=== PATIENT | male | born 1955 | race Caucasian/White ===

== ENCOUNTER 2019-03-03 14:44 | Inpatient (IN) | payer OTHER ==
[~2019-03-03] VITALS: Ht 185.4 cm; Wt 90.0 kg
[2019-03-03] MEDS ORDERED: DEXTROSE 50%-WATER 25 GM/50 ML SYRINGE IVP PRN ×2 (18:30)
[2019-03-03] MEDS ORDERED: INSULIN LISPRO 100 UNITS/ML SQ PRN (18:30)
[2019-03-03] MEDS: INSULIN LISPRO 100 UNITS/ML SQ PRN ×2 (18:44→20:47)
[2019-03-03] MEDS ORDERED: OxyCODONE HCL/ACETAMINOPHEN 5-325 MG TABLET PO PRN (19:30)
[2019-03-03] MEDS ORDERED: BISACODYL 5 MG EC TABLET PO PRN (19:30)
[2019-03-03] MEDS ORDERED: MELATONIN 3 MG TABLET PO PRN (19:30)
[2019-03-03] MEDS ORDERED: OxyCODONE HCL/ACETAMINOPHEN 10-325 MG TABLET PO PRN (19:30)
[2019-03-03] MEDS ORDERED: LACTULOSE 20 GM/30 ML SOLUTION UDCUP PO PRN (19:30)
[2019-03-03] MEDS ORDERED: ACETAMINOPHEN 325 MG TABLET PO PRN (19:30)
[2019-03-03 19:34] LABS: GLUCOMETER DEV NAME(LOC) 2WR.2; GLUCOSE,POINT OF CARE 147 MG/DL (70-110)
[2019-03-03] MEDS: AmLODIPine BESYLATE 10 MG TABLET PO SCH (20:40)
[2019-03-03] MEDS: HEPARIN SODIUM,PORCINE 5,000 UNITS/ML VIAL SQ SCH (20:40)
[2019-03-03] MEDS: INSULIN GLARGINE,HUM.REC.ANLOG 100 UNITS/ML SQ SCH (20:46)
[2019-03-03] MEDS: DOCUSATE SODIUM 100 MG CAPSULE PO SCH (20:49)
[2019-03-03 20:50] VITALS: BP 132/56
[2019-03-03 22:35] LABS: GLUCOMETER DEV NAME(LOC) 2WR.1; GLUCOSE,POINT OF CARE 147 MG/DL (70-110)
[2019-03-04] VITALS: BP 144/60
[2019-03-04 06:36] LABS: GLUCOMETER DEV NAME(LOC) 2WR.2; GLUCOSE,POINT OF CARE 100 MG/DL (70-110)
[2019-03-04 07:13] LABS: BASOPHILS % (AUTO) 1.8 % (0.0-2.0); HEMATOCRIT 24.9 % (41-53); HEMOGLOBIN 7.9 g/dL (13.5-17.5); LYMPHOCYTES # (AUTO) 1.3 K/uL (1.0-4.8); LYMPHOCYTES % (AUTO) 22.6 % (22.0-44.0); MEAN CORPUSCULAR HEMOGLOBIN 26.4 pg (26.0-34.0); MEAN CORPUSCULAR HGB CONC 31.9 G/dL (31.0-37.0); MEAN CORPUSCULAR VOLUME 83 fL (80-100); MONOCYTES # (AUTO) 0.7 K/uL (0.1-1.0); MONOCYTES % (AUTO) 11.1 % (2.0-9.0); NEUTROPHILS # (AUTO) 3.6 K/uL (1.8-7.7); NEUTROPHILS % (AUTO) 60.5 % (40.0-70.0); PLATELET COUNT (AUTO) 333 K/uL (150-450); RED BLOOD CELL COUNT(AUTO) 3.01 MIL/uL (4.50-5.90); RED CELL DISTRIBUTION WIDTH 20.2 % (11.5-14.5)
[2019-03-04 08:00] LABS: ALBUMIN 2.1 g/dL (3.4-5.0); BILIRUBIN,TOTAL 0.4 mg/dL (0.1-1.0); CALCIUM, TOTAL 8.6 mg/dL (8.8-10.5); CREATININE 6.34 mg/dL (0.60-1.30); POTASSIUM 4.4 mmol/L (3.5-5.1); TOTAL PROTEIN, SERUM 6.2 g/dL (6.4-8.2)
[2019-03-04 08:01] VITALS: BP 146/68
[2019-03-04] MEDS: FERROUS SULFATE 325 MG EC TABLET PO SCH ×3 (08:05→17:27)
[2019-03-04] MEDS: LISINOPRIL 10 MG TABLET PO SCH (08:05)
[2019-03-04] MEDS: HEPARIN SODIUM,PORCINE 5,000 UNITS/ML VIAL SQ SCH ×2 (08:05→20:26)
[2019-03-04] MEDS: DOCUSATE SODIUM 100 MG CAPSULE PO SCH ×3 (08:05→20:26)
[2019-03-04] MEDS: FAMOTIDINE 20 MG TABLET PO SCH (08:05)
[2019-03-04] MEDS: EPOETIN ALFA 10,000 UNITS/ML VIAL SQ SCH (08:10)
[2019-03-04] MEDS: VITAMIN B COMP/VIT C/FOLIC ACID CAPSULE PO SCH (10:42)
[2019-03-04] MEDS: INSULIN LISPRO 100 UNITS/ML SQ PRN ×2 (12:31→20:35)
[2019-03-04 12:41] LABS: GLUCOMETER DEV NAME(LOC) 2WR.1; GLUCOSE,POINT OF CARE 142 MG/DL (70-110)
[2019-03-04 16:05] VITALS: BP 139/61
[2019-03-04 18:15] LABS: GLUCOMETER DEV NAME(LOC) 2WR.1; GLUCOSE,POINT OF CARE 93 MG/DL (70-110)
[2019-03-04 20:22] VITALS: BP 148/64
[2019-03-04] MEDS: AmLODIPine BESYLATE 10 MG TABLET PO SCH (20:26)
[2019-03-04] MEDS: INSULIN GLARGINE,HUM.REC.ANLOG 100 UNITS/ML SQ SCH (20:34)
[2019-03-04 21:30] LABS: GLUCOMETER DEV NAME(LOC) 2WR.1; GLUCOSE,POINT OF CARE 179 MG/DL (70-110)
[2019-03-04] MEDS: CHLORHEXIDINE GLUCONATE 4% 118 ML TOPICAL LIQUID TP SCH (22:28)
[2019-03-05] VITALS: BP 134/59
[2019-03-05 06:25] LABS: GLUCOMETER DEV NAME(LOC) 2WR.2; GLUCOSE,POINT OF CARE 85 MG/DL (70-110)
[2019-03-05 06:48] LABS: BASOPHILS % (AUTO) 1.3 % (0.0-2.0); EOSINOPHILS % (AUTO) 5.4 % (1.0-6.0); HEMATOCRIT 25.1 % (41-53); LYMPHOCYTES % (AUTO) 31.7 % (22.0-44.0); MEAN CORPUSCULAR HEMOGLOBIN 26.5 pg (26.0-34.0); MEAN CORPUSCULAR VOLUME 83 fL (80-100); MONOCYTES # (AUTO) 0.6 K/uL (0.1-1.0); NEUTROPHILS # (AUTO) 3.3 K/uL (1.8-7.7); NEUTROPHILS % (AUTO) 51.6 % (40.0-70.0); PLATELET COUNT (AUTO) 347 K/uL (150-450); RED BLOOD CELL COUNT(AUTO) 3.02 MIL/uL (4.50-5.90); RED CELL DISTRIBUTION WIDTH 20.2 % (11.5-14.5)
[2019-03-05 07:25] LABS: % IRON SATURATION 25.1 % (30-44)
[2019-03-05 07:29] LABS: CREATININE 8.35 mg/dL (0.60-1.30)
[2019-03-05] MEDS ORDERED: SODIUM CHLORIDE 0.9% 1,000 ML IV ONE ×2 (07:29)
[2019-03-05 07:37] LABS: CALCIUM, TOTAL 8.9 mg/dL (8.8-10.5)
[2019-03-05] MEDS: FAMOTIDINE 20 MG TABLET PO SCH (08:12)
[2019-03-05] MEDS: VITAMIN B COMP/VIT C/FOLIC ACID CAPSULE PO SCH (08:12)
[2019-03-05] MEDS: LISINOPRIL 10 MG TABLET PO SCH (08:13)
[2019-03-05] MEDS: HEPARIN SODIUM,PORCINE 5,000 UNITS/ML VIAL SQ SCH ×2 (08:13→21:08)
[2019-03-05] MEDS: FERROUS SULFATE 325 MG EC TABLET PO SCH ×3 (08:13→17:46)
[2019-03-05] MEDS: DOCUSATE SODIUM 100 MG CAPSULE PO SCH ×2 (08:14→21:08)
[2019-03-05 08:47] VITALS: BP 136/58
[2019-03-05] MEDS ORDERED: MANNITOL 25%-12.5 GM/50 ML VIAL IVP PRN (10:45)
[2019-03-05] MEDS ORDERED: HEPARIN SODIUM,PORCINE 1,000 UNITS/ML VIAL IVP ONE ×2 (10:45)
[2019-03-05] MEDS ORDERED: SOD FERRIC GLUC COMPLX/SUCROSE 125 MG in SODIUM CHLORIDE 0.9% 100 ML IV SCH (11:00)
[2019-03-05 16:43] VITALS: BP 130/60
[2019-03-05] MEDS ORDERED: SODIUM CHLORIDE 0.9% 250 ML IV ONE (17:26)
[2019-03-05] MEDS ORDERED: HEPARIN SODIUM,PORCINE 1,000 UNITS/ML VIAL ONE (18:05)
[2019-03-05 18:06] LABS: GLUCOMETER DEV NAME(LOC) 2WR.1; GLUCOSE,POINT OF CARE 156 MG/DL (70-110)
[2019-03-05] MEDS: INSULIN LISPRO 100 UNITS/ML SQ PRN (18:51)
[2019-03-05 20:00] VITALS: BP 116/51
[2019-03-05] MEDS: AmLODIPine BESYLATE 10 MG TABLET PO SCH (21:08)
[2019-03-05] MEDS: CHLORHEXIDINE GLUCONATE 4% 118 ML TOPICAL LIQUID TP SCH (21:08)
[2019-03-05] MEDS: INSULIN GLARGINE,HUM.REC.ANLOG 100 UNITS/ML SQ SCH (21:09)
[2019-03-05 21:56] LABS: GLUCOMETER DEV NAME(LOC) 2WR.2; GLUCOSE,POINT OF CARE 138 MG/DL (70-110)
[2019-03-05] MEDS: 0.9% SODIUM CHLORIDE 10 ML SYRINGE IVP SCH (23:18)
[2019-03-06 00:25] VITALS: BP 142/62
[2019-03-06 06:21] LABS: GLUCOMETER DEV NAME(LOC) 2WR.1; GLUCOSE,POINT OF CARE 90 MG/DL (70-110)
[2019-03-06] MEDS: FERROUS SULFATE 325 MG EC TABLET PO SCH ×3 (08:32→18:22)
[2019-03-06] MEDS: LISINOPRIL 10 MG TABLET PO SCH (08:33)
[2019-03-06] MEDS: FAMOTIDINE 20 MG TABLET PO SCH (08:33)
[2019-03-06] MEDS: CALCITRIOL 0.25 MCG CAPSULE PO SCH (08:33)
[2019-03-06] MEDS: DOCUSATE SODIUM 100 MG CAPSULE PO SCH ×2 (08:34→20:37)
[2019-03-06] MEDS: VITAMIN B COMP/VIT C/FOLIC ACID CAPSULE PO SCH (08:34)
[2019-03-06] MEDS: 0.9% SODIUM CHLORIDE 10 ML SYRINGE IVP SCH (08:35)
[2019-03-06] MEDS: HEPARIN SODIUM,PORCINE 5,000 UNITS/ML VIAL SQ SCH ×2 (08:36→20:38)
[2019-03-06 09:08] VITALS: BP 150/67
[2019-03-06 12:51] LABS: GLUCOMETER DEV NAME(LOC) 2WR.2; GLUCOSE,POINT OF CARE 131 MG/DL (70-110)
[2019-03-06] MEDS ORDERED: SOD FERRIC GLUC COMPLX/SUCROSE 125 MG in SODIUM CHLORIDE 0.9% 100 ML IV SCH (16:00)
[2019-03-06 16:17] VITALS: BP 142/66
[2019-03-06 19:40] LABS: GLUCOMETER DEV NAME(LOC) 2WR.1; GLUCOSE,POINT OF CARE 99 MG/DL (70-110)
[2019-03-06 20:37] VITALS: BP 146/65
[2019-03-06] MEDS: AmLODIPine BESYLATE 10 MG TABLET PO SCH (20:37)
[2019-03-06] MEDS: CHLORHEXIDINE GLUCONATE 4% 118 ML TOPICAL LIQUID TP SCH (20:38)
[2019-03-06 20:40] LABS: GLUCOMETER DEV NAME(LOC) 2WR.1; GLUCOSE,POINT OF CARE 183 MG/DL (70-110)
[2019-03-06] MEDS: INSULIN GLARGINE,HUM.REC.ANLOG 100 UNITS/ML SQ SCH (20:41)
[2019-03-06] MEDS: INSULIN LISPRO 100 UNITS/ML SQ PRN (20:42)
[2019-03-07] VITALS: BP 141/50
[2019-03-07 05:57] LABS: GLUCOMETER DEV NAME(LOC) 2WR.1; GLUCOSE,POINT OF CARE 113 MG/DL (70-110)
[2019-03-07] MEDS: HEPARIN SODIUM,PORCINE 5,000 UNITS/ML VIAL SQ SCH ×2 (07:55→21:15)
[2019-03-07] MEDS: EPOETIN ALFA 10,000 UNITS/ML VIAL SQ SCH (07:55)
[2019-03-07] MEDS: FERROUS SULFATE 325 MG EC TABLET PO SCH ×3 (07:55→21:10)
[2019-03-07] MEDS: DOCUSATE SODIUM 250 MG CAPSULE PO SCH ×2 (07:55→21:11)
[2019-03-07] MEDS: FAMOTIDINE 20 MG TABLET PO SCH (07:55)
[2019-03-07] MEDS: VITAMIN B COMP/VIT C/FOLIC ACID CAPSULE PO SCH (07:55)
[2019-03-07] MEDS: LISINOPRIL 10 MG TABLET PO SCH (08:22)
[2019-03-07 11:16] VITALS: BP 145/64
[2019-03-07] MEDS ORDERED: HEPARIN SODIUM,PORCINE 1,000 UNITS/ML VIAL IVP ONE (12:00)
[2019-03-07] MEDS ORDERED: SODIUM CHLORIDE 0.9% 2,000 ML IV ONE (12:32)
[2019-03-07 12:56] LABS: GLUCOMETER DEV NAME(LOC) 2WR.1; GLUCOSE,POINT OF CARE 124 MG/DL (70-110)
[2019-03-07] MEDS ORDERED: SOD FERRIC GLUC COMPLX/SUCROSE 125 MG in SODIUM CHLORIDE 0.9% 100 ML IV SCH (13:00)
[2019-03-07 16:15] VITALS: BP 140/68
[2019-03-07 20:30] VITALS: BP 147/60
[2019-03-07] MEDS: AmLODIPine BESYLATE 10 MG TABLET PO SCH (21:10)
[2019-03-07] MEDS: CHLORHEXIDINE GLUCONATE 4% 118 ML TOPICAL LIQUID TP SCH (21:10)
[2019-03-07] MEDS: SENNA 187 MG TABLET PO SCH (21:11)
[2019-03-07] MEDS: SOD FERRIC GLUC COMPLX/SUCROSE 125 MG in SODIUM CHLORIDE 0.9% 100 ML IV SCH (21:16)
[2019-03-07] MEDS: INSULIN GLARGINE,HUM.REC.ANLOG 100 UNITS/ML SQ SCH (21:29)
[2019-03-07 21:55] LABS: GLUCOMETER DEV NAME(LOC) 2WR.1; GLUCOSE,POINT OF CARE 89 MG/DL (70-110)
[2019-03-08 00:07] VITALS: BP 128/62
[2019-03-08 06:11] LABS: GLUCOMETER DEV NAME(LOC) 2WR.1; GLUCOSE,POINT OF CARE 87 MG/DL (70-110)
[2019-03-08 07:30] VITALS: BP 148/64
[2019-03-08] MEDS: CALCITRIOL 0.25 MCG CAPSULE PO SCH (08:12)
[2019-03-08] MEDS: VITAMIN B COMP/VIT C/FOLIC ACID CAPSULE PO SCH (08:12)
[2019-03-08] MEDS: HEPARIN SODIUM,PORCINE 5,000 UNITS/ML VIAL SQ SCH ×2 (08:12→20:41)
[2019-03-08] MEDS: DOCUSATE SODIUM 250 MG CAPSULE PO SCH ×2 (08:12→20:40)
[2019-03-08] MEDS: LISINOPRIL 10 MG TABLET PO SCH (08:12)
[2019-03-08] MEDS: FAMOTIDINE 20 MG TABLET PO SCH (08:13)
[2019-03-08] MEDS: FERROUS SULFATE 325 MG EC TABLET PO SCH ×3 (08:13→18:09)
[2019-03-08 15:00] VITALS: BP 139/65
[2019-03-08] MEDS ORDERED: ONDANSETRON HCL 4 MG TABLET PO PRN (15:30)
[2019-03-08 18:26] LABS: GLUCOMETER DEV NAME(LOC) 2WR.2; GLUCOSE,POINT OF CARE 133 MG/DL (70-110)
[2019-03-08 20:38] VITALS: BP 132/68
[2019-03-08] MEDS: AmLODIPine BESYLATE 10 MG TABLET PO SCH (20:40)
[2019-03-08] MEDS: SENNA 187 MG TABLET PO SCH (20:40)
[2019-03-08] MEDS: CHLORHEXIDINE GLUCONATE 4% 118 ML TOPICAL LIQUID TP SCH (20:42)
[2019-03-08] MEDS: INSULIN GLARGINE,HUM.REC.ANLOG 100 UNITS/ML SQ SCH (20:43)
[2019-03-08] MEDS: INSULIN LISPRO 100 UNITS/ML SQ PRN (20:44)
[2019-03-08 22:15] LABS: GLUCOMETER DEV NAME(LOC) 2WR.2; GLUCOSE,POINT OF CARE 189 MG/DL (70-110)
[2019-03-09 00:16] VITALS: BP 132/63
[2019-03-09 06:26] LABS: GLUCOMETER DEV NAME(LOC) 2WR.1; GLUCOSE,POINT OF CARE 99 MG/DL (70-110)
[2019-03-09 07:30] VITALS: BP 141/54
[2019-03-09] MEDS: VITAMIN B COMP/VIT C/FOLIC ACID CAPSULE PO SCH (08:45)
[2019-03-09] MEDS: FERROUS SULFATE 325 MG EC TABLET PO SCH ×3 (08:46→17:36)
[2019-03-09] MEDS: HEPARIN SODIUM,PORCINE 5,000 UNITS/ML VIAL SQ SCH ×2 (08:46→20:41)
[2019-03-09] MEDS: FAMOTIDINE 20 MG TABLET PO SCH (08:46)
[2019-03-09] MEDS: EPOETIN ALFA 10,000 UNITS/ML VIAL SQ SCH (08:46)
[2019-03-09] MEDS: LISINOPRIL 10 MG TABLET PO SCH (08:46)
[2019-03-09] MEDS: DOCUSATE SODIUM 250 MG CAPSULE PO SCH ×2 (08:47→20:41)
[2019-03-09 13:00] LABS: GLUCOMETER DEV NAME(LOC) 2WR.2; GLUCOSE,POINT OF CARE 112 MG/DL (70-110)
[2019-03-09] MEDS: SOD FERRIC GLUC COMPLX/SUCROSE 125 MG in SODIUM CHLORIDE 0.9% 100 ML IV SCH (13:00)
[2019-03-09 18:00] LABS: GLUCOMETER DEV NAME(LOC) 2WR.2; GLUCOSE,POINT OF CARE 103 MG/DL (70-110)
[2019-03-09 20:06] VITALS: BP 148/71
[2019-03-09] MEDS: AmLODIPine BESYLATE 10 MG TABLET PO SCH (20:41)
[2019-03-09] MEDS: CHLORHEXIDINE GLUCONATE 4% 118 ML TOPICAL LIQUID TP SCH (20:41)
[2019-03-09] MEDS: SENNA 187 MG TABLET PO SCH (20:41)
[2019-03-09] MEDS: INSULIN GLARGINE,HUM.REC.ANLOG 100 UNITS/ML SQ SCH (20:52)
[2019-03-10] VITALS: BP 136/70
[2019-03-10] MEDS: DiphenhydrAMINE HCL 25 MG CAPSULE PO PRN ×2 (00:37→07:55)
[2019-03-10] MEDS ORDERED: CALC25 PO (05:03)
[2019-03-10] MEDS ORDERED: FAMO20 PO (05:03)
[2019-03-10] MEDS ORDERED: DOCU250C91 PO (05:03)
[2019-03-10] MEDS ORDERED: LISI-661 PO (05:03)
[2019-03-10] MEDS ORDERED: INSLAN SQ (05:03)
[2019-03-10] MEDS ORDERED: FERR-89 PO (05:03)
[2019-03-10] MEDS ORDERED: FOLI0.8T2 PO (05:13)
[2019-03-10 06:35] LABS: GLUCOMETER DEV NAME(LOC) 2WR.1; GLUCOSE,POINT OF CARE 97 MG/DL (70-110)
[2019-03-10 07:30] VITALS: BP 149/61
[2019-03-10] MEDS: HEPARIN SODIUM,PORCINE 5,000 UNITS/ML VIAL SQ SCH ×2 (07:55→20:15)
[2019-03-10] MEDS: CALCITRIOL 0.25 MCG CAPSULE PO SCH (07:55)
[2019-03-10] MEDS: FAMOTIDINE 20 MG TABLET PO SCH (07:55)
[2019-03-10] MEDS: FERROUS SULFATE 325 MG EC TABLET PO SCH ×3 (07:55→18:03)
[2019-03-10] MEDS: VITAMIN B COMP/VIT C/FOLIC ACID CAPSULE PO SCH (07:56)
[2019-03-10] MEDS: DOCUSATE SODIUM 250 MG CAPSULE PO SCH ×3 (07:56→20:34)
[2019-03-10] MEDS: SOD FERRIC GLUC COMPLX/SUCROSE 125 MG in SODIUM CHLORIDE 0.9% 100 ML IV SCH ×2 (07:59→13:45)
[2019-03-10] MEDS: LISINOPRIL 10 MG TABLET PO SCH (08:42)
[2019-03-10] MEDS ORDERED: SOD FERRIC GLUC COMPLX/SUCROSE 125 MG in SODIUM CHLORIDE 0.9% 100 ML IV ONE (09:00)
[2019-03-10 10:13] LABS: HEMOGLOBIN 8.2 g/dL (13.5-17.5); MEAN CORPUSCULAR HEMOGLOBIN 27.2 pg (26.0-34.0); MEAN CORPUSCULAR HGB CONC 31.3 G/dL (31.0-37.0); MEAN CORPUSCULAR VOLUME 87 fL (80-100); PLATELET COUNT (AUTO) 275 K/uL (150-450); RED CELL DISTRIBUTION WIDTH 23.5 % (11.5-14.5)
[2019-03-10 10:34] LABS: CALCIUM, TOTAL 8.7 mg/dL (8.8-10.5); CREATININE 10.42 mg/dL (0.60-1.30); POTASSIUM 4.2 mmol/L (3.5-5.1)
[2019-03-10 10:47] LABS: BAND NEUTROPHILS % (MANUAL) 2 % (0-5); EOSINOPHILS % (MANUAL) 1 % (1-6); LYMPHOCYTES % (MANUAL) 24 % (22-44); MONOCYTES % (MANUAL) 1 % (2-9); SEGMENTED NEUTROPHILS % 72 % (40-70)
[2019-03-10] MEDS ORDERED: HEPARIN SODIUM,PORCINE 1,000 UNITS/ML VIAL IVP ONE (12:00)
[2019-03-10 15:25] VITALS: BP 134/60
[2019-03-10] MEDS: INSULIN LISPRO 100 UNITS/ML SQ PRN (18:10)
[2019-03-10 20:15] VITALS: BP 147/66
[2019-03-10] MEDS: SENNA 187 MG TABLET PO SCH ×2 (20:15→20:34)
[2019-03-10] MEDS: AmLODIPine BESYLATE 10 MG TABLET PO SCH (20:15)
[2019-03-10] MEDS: CHLORHEXIDINE GLUCONATE 4% 118 ML TOPICAL LIQUID TP SCH (20:16)
[2019-03-10] MEDS: INSULIN GLARGINE,HUM.REC.ANLOG 100 UNITS/ML SQ SCH (20:26)
[2019-03-11] VITALS: BP 136/62
[2019-03-11] MEDS ORDERED: AMLO10TA7 PO (04:59)
[2019-03-11 06:40] LABS: GLUCOMETER DEV NAME(LOC) 2WR.1; GLUCOSE,POINT OF CARE 90 MG/DL (70-110)
[2019-03-11 07:47] VITALS: BP 157/74
[2019-03-11] MEDS: FAMOTIDINE 20 MG TABLET PO SCH (08:02)
[2019-03-11] MEDS: VITAMIN B COMP/VIT C/FOLIC ACID CAPSULE PO SCH (08:02)
[2019-03-11] MEDS: FERROUS SULFATE 325 MG EC TABLET PO SCH (08:02)
[2019-03-11] MEDS: LISINOPRIL 10 MG TABLET PO SCH (08:02)
[2019-03-11] MEDS: DOCUSATE SODIUM 250 MG CAPSULE PO SCH (08:03)
[2019-03-11] MEDS: EPOETIN ALFA 10,000 UNITS/ML VIAL SQ SCH (08:03)
[2019-03-11] MEDS: HEPARIN SODIUM,PORCINE 5,000 UNITS/ML VIAL SQ SCH (08:03)
== END 2019-03-11 11:15 | disposition home or self-care (01) | DRG 638 ==
LOC: 2WR 16:34
PROVIDERS: ADMIT Physical Medicine & Rehabilitation; ATTEND Physical Medicine & Rehabilitation
DX: E11.69 Type 2 diabetes mellitus with other specified complication (principal); E87.1 Hypo-osmolality and hyponatremia; I12.0 Hypertensive chronic kidney disease with stage 5 chronic kidney disease or end stage renal disease; M86.8X7 Other osteomyelitis, ankle and foot; E11.51 Type 2 diabetes mellitus with diabetic peripheral angiopathy without gangrene; D63.1 Anemia in chronic kidney disease; E11.22 Type 2 diabetes mellitus with diabetic chronic kidney disease; E11.40 Type 2 diabetes mellitus with diabetic neuropathy, unspecified; E78.5 Hyperlipidemia, unspecified; F32.9 Major depressive disorder, single episode, unspecified; E11.42 Type 2 diabetes mellitus with diabetic polyneuropathy; G47.33 Obstructive sleep apnea (adult) (pediatric); N18.6 End stage renal disease; N25.81 Secondary hyperparathyroidism of renal origin; Z79.4 Long term (current) use of insulin; Z89.511 Acquired absence of right leg below knee; Z89.512 Acquired absence of left leg below knee; Z99.2 Dependence on renal dialysis; Z79.899 Other long term (current) drug therapy
CPT/HCPCS: 82271; 83540; 83550; 83970; 84100; 85007; 86704; 86706; 87081; 87340; 97110; 97112; 97116; 97150; 97162; 97166; 97530; 97535; 99366; J0885; J1644; J1815; J2916; J7030; J7050